=== PATIENT | male | born 1985 | race Caucasian/White ===

== ENCOUNTER 2017-02-12 18:37 | Emergency (ER) | payer BC, OTHER ==
[2017-02-12 18:42] VITALS: TEMP 99.3; BMI 27.3
--- NOTE | 2017-02-12 18:59 | ED PDOC ---
Arrival/HPI - General Historian: Patient, EMS - History of Present Illness Time/Duration: Prior to Arrival Symptom Onset: Gradual Symptom Course: Unchanged <Joseluis Montoya - Last Filed: 02/12/17 20:16> <Jefferson Haile - Last Filed: 02/12/17 23:41> - General Chief Complaint: Psychiatric Evaluation Time Seen by Provider: 02/12/17 18:47 - History of Present Illness Associated Symptoms (Text): 02/12/17 18:57 Patient reports that he ran out of all of his medication several weeks ago. He is supposed to be taking Zoloft trazodone Seroquel and Abilify. Today he got home from work and got into a verbal argument with his mother. His mother became frightened of him and called police. Police arrived and he was transported to the emergency department. He reports a suicide attempt August 2016. He denies suicidal or homicidal ideation at this time. 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 He has multiple lacerations on his right volar wrist and reports that it occurred at work from a rotating belt and I believe this to be true. He appears to be manic. (Joseluis Montoya) Past Medical History - HEENT Hx HEENT Disorder: Yes Other/Comment: inflammation of right eye - Psychiatric Hx Psychophysiologic Disorder: Yes Hx Depression: Yes Hx Substance Use: Yes (marijuana) - Surgical History Hx Joint Replacement: Yes <Joseluis Montoya - Last Filed: 02/12/17 20:16> Family/Social History - Physician Review Nursing Documentation Reviewed: Yes Family/Social History: Unknown Family HX Smoking Status: Current Some Days Smoker Hx Alcohol Use: Yes Frequency of alcohol use: Socially Hx Substance Use: Yes (marijuana) <Joseluis Montoya - Last Filed: 02/12/17 20:16> Allergies/Home Meds <Joseluis Montoya - Last Filed: 02/12/17 20:16> <Jefferson Haile - Last Filed: 02/12/17 23:41> Allergies/Adverse Reactions: Allergies No Known Allergies Allergy (Verified 08/20/15 03:48) Home Medications: Home Meds Medication Instructions Recorded Confirmed Sertraline [Zoloft] 150 mg PO DAILY 02/12/17 02/12/17 traZODone [Desyrel] 100 mg PO HS 02/12/17 02/12/17 Review of Systems - Physician Review All systems were reviewed & negative as marked: Yes - Review of Systems Constitutional: Normal Respiratory: Normal Cardiovascular: Normal Gastrointestinal: Normal Genitourinary Male: Normal Musculoskeletal: Normal Skin: Normal Neurological: Normal Psychiatric: absent: Anxiety, Depression, Suicidal Ideation <Joseluis Montoya Last Filed: 02/12/17 20:16> Physical Exam Temperature: Afebrile Blood Pressure: Normal Pulse: Regular Respiratory Rate: Normal Appearance: Positive for: Well-Appearing, Non-Toxic, Comfortable Pain Distress: None Mental Status: Positive for: Alert and Oriented X 3 - Systems Exam Head: Present: Atraumatic, Normocephalic Pupils: Present: PERRL Extroacular Muscles: Present: EOMI Conjunctiva: Present: Normal Mouth: Present: Moist Mucous Membranes Pharnyx: No: ERYTHEMA, EXUDATE, TONSILS ENLARGED Neck: Present: Normal Range of Motion Respiratory/Chest: Present: Clear to Auscultation, Good Air Exchange. No: Respiratory Distress, Accessory Muscle Use Cardiovascular: Present: Regular Rate and Rhythm, Normal S1, S2. No: Murmurs Abdomen: Present: Normal Bowel Sounds. No: Tenderness, Distention, Peritoneal Signs, Rebound, Guarding Upper Extremity: No: Normal Inspection (right volar wrist abrasions as above), Cyanosis, Edema Lower Extremity: Present: Normal Inspection. No: Edema Neurological: Present: GCS=15, CN II-XII Intact, Speech Normal, Motor Func Grossly Intact Skin: Present: Warm, Dry, Normal Color, Abrasion (abrasions as above). No: Rashes Psychiatric: Present: Alert, Oriented x 3, Normal Insight, Normal Concentration , Other (appears to be manic). No: Normal Affect, Normal Mood, Anxious, Agitated, Depressed Mood, Suicidal Ideation, Homicidal Ideation, Delusional, Hallucinations, Intoxicated, Lethargic <Joseluis Montoya Last Filed: 02/12/17 20:16> Vital Signs Temp Pulse Resp BP Pulse Ox 02/12/17 20:37 75 14 94/51 L 95 02/12/17 18:41 99.3 F 84 16 123/77 98 Medical Decision Making <Joseluis Montoya - Last Filed: 02/12/17 20:16> <Jefferson Haile - Last Filed: 02/12/17 23:41> ED Course and Treatment: 02/12/17 20:16 EKG shows normal sinus rhythm rate approximately [address] or T-wave changes (Joseluis Montoya) 02/12/17 23:38 Pt. endorsed from pending PES evaluation.Pt. was seen and evaluated by ALBAN Dewitt.Pt. cleared for discharge outpatient psychiaric follow up with his doctor as per psychiatry. (Jefferson Haile) - Lab Interpretations Lab Results: 02/12/17 19:10 02/12/17 19:10 Lab Results 02/12/17 19:57: Urine Color Light yellow, Urine Appearance Clear, Urine pH 6.5, Ur Specific [place] 1.020, Urine Protein Trace H, Urine Glucose (UA) Negative, Urine Ketones Negative, Urine Blood Negative, Urine Nitrate Negative, Urine Bilirubin Negative, Urine Urobilinogen 0.2, Ur Leukocyte Esterase Negative, Urine RBC 0 - 2, Urine WBC 0 - 2, Urine Opiates Screen Negative, Urine Methadone Screen Negative, Ur Barbiturates Screen Negative, Ur Phencyclidine Scrn Negative, Ur Amphetamines Screen Negative, U Benzodiazepines Scrn Negative , U Oth Cocaine Metabols Negative, U Cannabinoids Screen Positive H 02/12/17 19:10: WBC 8.3, RBC 5.06, Hgb 14.9, Hct 44.0, MCV 87.0, MCH 29.4, MCHC 33.9, RDW 14.2, Plt Count 204, MPV 11.4 H, Gran % 66.3, Lymph % (Auto) 25.1, [place] % (Auto) 7.1 H, Eos % (Auto) 1.0 L, Baso % (Auto) 0.5, Gran # 5.52, Lymph # 2.1, [place] # 0.6, Eos # 0.1, Baso # 0.04, Sodium 141, Potassium 4.4, Chloride 99, Carbon Dioxide 32, Anion Gap 14, BUN 16, Creatinine 1.0, Est GFR ( Amer) > 60, Est GFR (Non-Af Amer) > 60, Random Glucose 86, Calcium 9.6, Total Bilirubin 0.6, AST 37, ALT 51, Alkaline Phosphatase 53, Total Protein 8.7 H, Albumin 4.6, Globulin 4.0, Albumin/Globulin Ratio 1.2, Salicylates < 1 L, Acetaminophen < 10.0 L, Alcohol, Quantitative < 10 - RAD Interpretation Radiology Orders: 02/12/17 19:01 CHEST PORTABLE [RAD] Stat Disposition/Present on Arrival - Present on Arrival History of DVT/PE: No History of Uncontrolled Diabetes: No Urinary Catheter: No History of Decub. Ulcer: No History Surgical Site Infection Following: None <Joseluis Montoya - Last Filed: 02/12/17 20:16> - Present on Arrival Any Indicators Present on Arrival: No - Disposition Have Diagnosis and Disposition been Completed?: Yes Disposition Time: 23:40 Patient Plan: Discharge <Jefferson Haile - Last Filed: 02/12/17 23:41> - Disposition Diagnosis: Depression Disposition: HOME/ ROUTINE Condition: STABLE Discharge Instructions (ExitCare): Depression (ED) Additional Instructions: Follow up with your psychiatrist as instructed.
[2017-02-12 19:24] LABS: ADD MANUAL DIFF? NO
[2017-02-12 19:31] LABS: BASO # 0.04 K/mm3 (0.0-2.0); BASO % 0.5 % (0.0-3.0); EOS # 0.1 (0.0-0.7); GRAN # 5.52 (1.4-6.5); GRAN % 66.3 % (50.0-68.0); LYMPH # 2.1 (1.2-3.4); LYMPH % 25.1 % (22.0-35.0); MEAN CORPUSCULAR HEMOGLOBIN 29.4 pg (25.0-35.0); MEAN CORPUSCULAR HGB CONC 33.9 g/dl (31.0-37.0); MEAN PLATELET VOLUME 11.4 fl (7.0-11.0); MONO # 0.6 (0.1-0.6); MONO % 7.1 % (1.0-6.0); PLATELET COUNT 204 10^3/uL (120.0-450.0); RED CELL DISTRIBUTION WIDTH 14.2 % (11.5-14.5); WHITE BLOOD COUNT 8.3 10^3/ul (4.5-11.0)
[2017-02-12 19:42] LABS: ALB/GLOB RATIO 1.2 (1.1-1.8); ALKALINE PHOSPHATASE 53 U/L (38-133); ALT/SGPT 51 U/L (7-56); AST/SGOT 37 U/L (15-59); BILIRUBIN,TOTAL 0.6 mg/dL (0.2-1.3); BLOOD UREA NITROGEN 16 mg/dL (7-21); CALCIUM 9.6 mg/dL (8.4-10.5); CARBON DIOXIDE 32 mmol/L (21-33); CHLORIDE 99 mmol/L (98-107); GFR AFRICAN-AMERICAN > 60; GLUCOSE,RANDOM 86 mg/dL (70-110); POTASSIUM 4.4 mmol/L (3.6-5.0); SODIUM 141 mmol/L (132-148); TOTAL PROTEIN 8.7 g/dL (5.8-8.3)
[2017-02-12 20:26] LABS: PH,URINE 6.5 (4.7-8.0); URINE BILIRUBIN NEGATIVE (NEGATIVE); URINE BLOOD NEGATIVE (NEGATIVE); URINE GLUCOSE (UA) NEGATIVE (NEGATIVE); URINE KETONE NEGATIVE (NEGATIVE); URINE LEUKOCYTE ESTERASE NEGATIVE Leu/uL (NEGATIVE); URINE PROTEIN TRACE mg/dL (<30 mg/dL); URINE UROBILINOGEN 0.2 E.U./dL (<1 E.U./dL)
[2017-02-12 20:49] LABS: URINE APPEARANCE CLEAR (CLEAR); URINE COLOR LIGHT YELLOW (YELLOW)
[2017-02-12 20:56] LABS: URINE RBC 0 - 2 /hpf (0-2); URINE WBC 0 - 2 /hpf (0-6)
[2017-02-12 23:50] VITALS: BP 136/78; PULSE 74; RESP 18; O2SAT 99
--- NOTE | 2017-02-13 08:00 | RAD ---
HISTORY: PES COMPARISON: No prior. FINDINGS: LUNGS: No active pulmonary disease. PLEURA: No significant pleural effusion identified, no pneumothorax apparent. CARDIOVASCULAR: Normal. OSSEOUS STRUCTURES: No significant abnormalities. VISUALIZED UPPER ABDOMEN: Normal. OTHER FINDINGS: None. IMPRESSION: No active disease.
--- NOTE | 2017-02-13 11:20 | CARD ---
APPROVED REPORT EKG Measurement Heart [id number] <Conclusion> Normal sinus rhythm Normal ECG
== END 2017-02-12 23:52 | disposition home or self-care (01) ==
LOC: ED 18:37
DX: F32.9 Major depressive disorder, single episode, unspecified (principal); F12.90 Cannabis use, unspecified, uncomplicated
CPT/HCPCS: 71010; 80053; 81001; 85025; 90791; 93005; 99283; G0480

== ENCOUNTER 2017-10-20 14:02 | Emergency (ER) | payer BC ==
[2017-10-20 14:02] VITALS: BMI 27.3
--- NOTE | 2017-10-20 15:26 | ED PDOC ---
Arrival/HPI - General Chief Complaint: Psychiatric Evaluation Time Seen by Provider: 10/20/17 14:59 - History of Present Illness Narrative History of Present Illness (Text): 31M brought in by police after his therapist called out of concern for statements he made during therapy session today. the patient adamantly denies any suicidal intent. He says he was opening up to his therapist about thoughts that come to him occasionally, including thoughts about using a gun to kill himself. he explains these are merely thoughts and he does not have any wish to kill himself. he says he feels the therapy sessions are helping. he works as a car wash attendant and does not take any psychiatric medication because he feels it is too sedating and may affect his work. he denies any substance abuse. Past Medical History - Infectious Disease Hx of Infectious Diseases: None - Cardiac Hx Cardiac Disorders: No Hx Hypertension: No - Pulmonary Hx Tuberculosis: No - Neurological HX Cerebrovascular Accident: No Hx Seizures: No - HEENT Hx HEENT Disorder: Yes Other/Comment: inflammation of right eye - Hematological/Oncological Hx Cancer: No - Genitourinary/Gynecological Hx Sexually Transmitted Diseases: No - Psychiatric Hx Psychophysiologic Disorder: Yes Hx Depression: Yes Hx Substance Use: Yes (marijuana) Other/Comment: boarder line persionality disorder, - Surgical History Hx Joint Replacement: Yes - Anesthesia Hx Anesthesia: Yes Hx Anesthesia Reactions: No Family/Social History Family/Social History: Other (nc) Smoking Status: Current Some Days Smoker Hx Alcohol Use: Yes Hx Substance Use: Yes (marijuana) Allergies/Home Meds Allergies/Adverse Reactions: Allergies No Known Allergies Allergy (Verified 10/20/17 14:09) Home Medications: Home Meds Medication Instructions Recorded Confirmed Sertraline [Zoloft] 150 mg PO DAILY 02/12/17 10/20/17 traZODone [Desyrel] 100 mg PO HS 02/12/17 10/20/17 Review of Systems - Review of Systems Constitutional: absent: Fevers Eyes: absent: Vision Changes Respiratory: absent: SOB Cardiovascular: absent: Chest Pain Gastrointestinal: absent: Vomiting Neurological: absent: Headache, Dizziness Psychiatric: absent: Suicidal Ideation Physical Exam Vital Signs Reviewed: Yes Vital Signs Temp Pulse Resp BP Pulse Ox 10/20/17 19:18 98 F 75 17 128/72 98 10/20/17 19:05 98 F 75 20 128/72 100 10/20/17 14:30 97.9 F 100 H 18 141/98 H 100 Appearance: Positive for: Well-Appearing, Non-Toxic, Comfortable Pain Distress: None Mental Status: Positive for: other - Systems Exam Head: Present: Atraumatic Pupils: Present: PERRL Nose (Internal): No: Epistaxis Respiratory/Chest: Present: Clear to Auscultation. No: Accessory Muscle Use Cardiovascular: Present: Regular Rate and Rhythm Neurological: Present: GCS=15, Other (no focal deficits) Skin: Present: Warm, Dry Psychiatric: Present: Alert, Oriented x 3, Normal Affect, Normal Mood. No: Anxious, Agitated, Depressed Mood, Suicidal Ideation, Homicidal Ideation, Delusional, Hallucinations, Intoxicated, Lethargic Medical Decision Making ED Course and Treatment: pt evaluated by psych service and cleared for dc - Lab Interpretations Lab Results: 10/20/17 17:45 10/20/17 17:45 Lab Results 10/20/17 17:45: Alcohol, Quantitative < 10 10/20/17 17:45: Salicylates < 1 L, Acetaminophen < 10.0 L 10/20/17 17:45: Urine Opiates Screen Negative, Urine Methadone Screen Negative, Ur Barbiturates Screen Negative, Ur Phencyclidine Scrn Negative, Ur Amphetamines Screen Negative, U Benzodiazepines Scrn Negative, U Oth Cocaine Metabols Negative, U Cannabinoids Screen Positive H 10/20/17 17:45: Sodium 141, Potassium 4.2, Chloride 101, Carbon Dioxide 26, Anion Gap 18, BUN 11, Creatinine 0.9, Est GFR ( Amer) > 60, Est GFR (Non- Af Amer) > 60, Random Glucose 101, Calcium 10.2, Total Bilirubin 1.0, AST 32, ALT 34, Alkaline Phosphatase 55, Total Protein 8.9 H, Albumin 5.0 H, Globulin 3.9, Albumin/Globulin Ratio 1.3 10/20/17 17:45: Urine Color Yellow, Urine Appearance Clear, Urine pH 7.0, Ur Specific [place] 1.020, Urine Protein 30 H, Urine Glucose (UA) Negative, Urine Ketones >=80, Urine Blood Negative, Urine Nitrate Negative, Urine Bilirubin Negative, Urine Urobilinogen 1.0 H, Ur Leukocyte Esterase Negative, Urine RBC Negative, Urine WBC 2 - 5, Ur Epithelial Cells 3 - 4, Urine Bacteria Many 10/20/17 17:45: WBC 7.2, RBC 5.10, Hgb 15.2, Hct 44.7, MCV 87.6, MCH 29.8, MCHC 34.0, RDW 13.5, Plt Count 199, MPV 10.9, Gran % 68.6 H, Lymph % (Auto) 24.5, [place] % (Auto) 6.2 H, Eos % (Auto) 0.3 L, Baso % (Auto) 0.4, Gran # 4.91, Lymph # 1.8, [place] # 0.4, Eos # 0.0, Baso # 0.03 Disposition/Present on Arrival - Present on Arrival Any Indicators Present on Arrival: No History of DVT/PE: No History of Uncontrolled Diabetes: No Urinary Catheter: No History of Decub. Ulcer: No History Surgical Site Infection Following: None - Disposition Have Diagnosis and Disposition been Completed?: Yes Diagnosis: Depression Disposition: HOME/ ROUTINE Disposition Time: 19:18 Condition: STABLE Additional Instructions: Please follow up with your doctor. Return to the ER for any worsening symptoms or for any other concerns. Referrals: Angel Qiu MD [Primary Care Provider] - Follow up with primary Forms: [employer] (Armenian)
[2017-10-20 18:06] LABS: BASO # 0.03 K/mm3 (0.0-2.0); BASO % 0.4 % (0.0-3.0); EOS % 0.3 % (1.5-5.0); GRAN # 4.91 (1.4-6.5); GRAN % 68.6 % (50.0-68.0); HEMOGLOBIN 15.2 g/dL (14.0-18.0); LYMPH # 1.8 (1.2-3.4); LYMPH % 24.5 % (22.0-35.0); MEAN CELL VOLUME 87.6 fl (80.0-105.0); MEAN CORPUSCULAR HEMOGLOBIN 29.8 pg (25.0-35.0); MEAN PLATELET VOLUME 10.9 fl (7.0-11.0); MONO # 0.4 (0.1-0.6); MONO % 6.2 % (1.0-6.0); RBC 5.1 10^6/uL (3.5-6.1); RED CELL DISTRIBUTION WIDTH 13.5 % (11.5-14.5); WHITE BLOOD COUNT 7.2 10^3/ul (4.5-11.0)
[2017-10-20 18:07] LABS: URINE BILIRUBIN NEGATIVE (NEGATIVE); URINE BLOOD NEGATIVE (NEGATIVE); URINE GLUCOSE (UA) NEGATIVE (NEGATIVE); URINE LEUKOCYTE ESTERASE NEGATIVE Leu/uL (NEGATIVE); URINE NITRATE NEGATIVE (NEGATIVE); URINE PROTEIN 30 mg/dL (<30 mg/dL)
[2017-10-20 18:08] LABS: URINE APPEARANCE CLEAR (CLEAR); URINE COLOR YELLOW (YELLOW)
[2017-10-20 18:14] LABS: URINE RBC NEGATIVE /hpf (0-2)
[2017-10-20 18:15] LABS: URINE BACTERIA MANY (NEG)
[2017-10-20 18:16] LABS: ALT/SGPT 34 U/L (7-56); AST/SGOT 32 U/L (17-59); BLOOD UREA NITROGEN 11 mg/dL (7-21); CALCIUM 10.2 mg/dL (8.4-10.5); GFR AFRICAN-AMERICAN > 60; GFR NON-AFRICAN AMERICAN > 60
[2017-10-20 18:17] LABS: ACETAMINOPHEN < 10.0 ug/ml (10.0-20.0); SALICYLATE < 1 mg/dL (2.0-20.0)
[2017-10-20 18:26] LABS: BARBITURATES, UR NEGATIVE (NEGATIVE); BENZODIAZEPINES, UR NEGATIVE (NEGATIVE); OPIATES, UR NEGATIVE (NEGATIVE); PHENCYCLIDINE, UR NEGATIVE (NEGATIVE)
[2017-10-20 19:06] VITALS: BP 128/72; PULSE 75; TEMP 98
[2017-10-20 19:11] LABS: ALB/GLOB RATIO 1.3 (1.1-1.8)
[2017-10-20 19:20] VITALS: RESP 17; O2SAT 98
--- NOTE | 2017-10-21 15:43 | CARD ---
APPROVED REPORT EKG Measurement Heart [id number] <Conclusion> Normal sinus rhythm Normal ECG
== END 2017-10-20 19:20 | disposition home or self-care (01) ==
LOC: ED 14:02
DX: F32.9 Major depressive disorder, single episode, unspecified (principal); F12.10 Cannabis abuse, uncomplicated
CPT/HCPCS: 80053; 81001; 85025; 90791; 93005; 99283; G0480